=== PATIENT | male | born 1965 | race Caucasian/White ===

== ENCOUNTER 2017-11-08 20:54 | Emergency (ER) | payer BC ==
[2017-11-08 21:22] VITALS: BP 124/89
--- NOTE | 2017-11-08 22:09 | UC ---
General HPI - HPI Summary HPI Summary: 52 yo gentleman c/o progressive sore throat all day. Daughter recently dx'd + strep throat 2 days ago, taking amoxil. He is concerned d/t similar sx, also plans to fly back to [place] in 2 days. No fever / chills. No sob / cp / cough. No GI sx. No rash. No ear pain / sinus issues. - History of Current Complaint Chief Complaint: UCGeneralIllness Stated Complaint: SORE THROAT Time Seen by Provider: 11/08/17 21:59 Hx Obtained From: Patient Pain Intensity: 2 - Allergy/Home Medications Allergies/Adverse Reactions: Allergies Allergy/AdvReac Type Severity Reaction Status Date / Time No Known Allergies Allergy Verified 11/08/17 22:25 PMH/Surg Hx/FS Hx/Imm Hx Previously Healthy: Yes - Surgical History Surgical History: None - Family History Known Family History: Positive: Other - see hpi - Social History Alcohol Use: Weekly Substance Use Type: Marijuana Substance Use Comment - Amount & Last Used: weekly Smoking Status (MU): Never Smoked Tobacco Review of Systems Constitutional: Negative Skin: Negative Eyes: Negative ENT: Sore Throat Respiratory: Negative Cardiovascular: Negative Gastrointestinal: Negative Genitourinary: Negative Motor: Negative Neurovascular: Negative Musculoskeletal: Negative Neurological: Negative Psychological: Negative Is Patient Immunocompromised?: No All Other Systems Reviewed And Are Negative: Yes Physical Exam Triage Information Reviewed: Yes Appearance: Well-Appearing, Well-Nourished Vital Signs: Initial Vital Signs Temp 97.8 F 11/08/17 21:16 Pulse 61 11/08/17 21:16 Resp 16 11/08/17 21:16 BP 124/89 11/08/17 21:16 Pulse Ox 100 11/08/17 21:16 Vital Signs Reviewed: Yes Eye Exam: Normal ENT: Positive: Pharyngeal erythema - post pharyngeal redness, uvula midlines. No sores / exudates noted or reported. Tongue not elevated. EAC's mild cerumen. TM's bilat ramos, dull. L TM + scar. Neither TM fully visible, but both intact as visible., Other Neck exam: Normal Neck: Positive: Supple, Nontender Respiratory Exam: Normal Respiratory: Positive: Chest non-tender, Lungs clear, Normal breath sounds, No respiratory distress, No accessory muscle use Cardiovascular Exam: Normal Cardiovascular: Positive: RRR, No Murmur, Pulses Normal, Brisk Capillary Refill Abdominal Exam: Normal Abdomen Description: Positive: Nontender Musculoskeletal Exam: Normal - gait steady, moves x 3 ext's Neurological Exam: Normal - grossly nonfocal Psychological Exam: Normal - conversing easily and appropriately Course/Dx - Course Course Of Treatment: RST negative. Mr. Ni expresses understandable concern d/t + recent contact positive strep, and upcoming travel (by air) plans. Acute pharyngitis as evident on exam. Will rx amoxil, d/w pt coa / tx plan, need for f/u bharati if worse or no better. Questions as posed answered to the best of my ability. - Differential Dx - Multi-Symptom Provider Diagnoses: Pharyngitis Discharge - Sign-Out/Discharge Documenting (check all that apply): Patient Departure - Discharge Plan Condition: Stable Disposition: HOME Prescriptions: Amoxicillin PO (*) [Amoxicillin 875 MG (*)] 875 mg PO BID #19 tab Patient Education Materials: Pharyngitis (ED) Referrals: No Primary Care Phys,NOPCP [Primary Care Provider] - Additional Instructions: Please follow up with your primary care physician per routine. Seek medical attention for worse or new problems. - Billing Disposition and Condition Condition: STABLE Disposition: Home
[2017-11-08] MEDS ORDERED: Amoxicillin PO (*) 500 MG CAP PO ONE (22:12)
== END 2017-11-08 22:31 | disposition home or self-care (01) ==
LOC: UCEAST 20:54
DX: J02.9 Acute pharyngitis, unspecified (principal)
CPT/HCPCS: 87651; 99202; A9270-GY; G0463